=== PATIENT | male | born 1955 | race Two or more races ===

== ENCOUNTER 2017-10-16 14:45 | Outpatient (CLI) | payer OTHER | END 2017-10-16 14:56 | disposition home or self-care (01) | LOC: SONOGRAMA 14:45 | DX: B18.2 Chronic viral hepatitis C (principal) ==

== ENCOUNTER → 2017-10-16 | Outpatient (CLI) | payer OTHER ==
[~2017-10-16] MED LIST: FORTAMET1000 MG; LASIX20 MG; PAXIL40 MG; RESTORIL7.5 MG PO; SEROQUEL200 MG; VASOTEC10 MG; XANAX1 MG
== END | disposition home or self-care (01) ==
LOC: LAB 12:58
DX: B18.2 Chronic viral hepatitis C (principal); R05 Cough; J41.0 Simple chronic bronchitis